=== PATIENT | female | born 1995 | race Caucasian/White ===

== ENCOUNTER 2018-01-19 04:34 | Inpatient (IN) | payer OTHER ==
[~2018-01-19] VITALS: Ht 162.6 cm; Wt 73.1 kg
[2018-01-19 05:25] LABS: BASOPHIL % 0.2 % (0-2); PLATELET COUNT 372 x10^3mcL (130-400); RED CELL DISTRIBUTION WIDTH 15.7 % (11.5-14.5)
[2018-01-19 05:26] LABS: CALCIUM 8.3 mg/dL (8.5-10.1); CARBON DIOXIDE 21.5 mmol/L (21-32); CHLORIDE SERUM 105 mmol/L (98-107); CREATININE SERUM 0.7 mg/dL (0.6-1.0); GFR1 > 60 mL/min; GLUCOSE SERUM 138 mg/dL (74-106); POTASSIUM SERUM 3.4 mmol/L (3.5-5.1); SODIUM SERUM 140 mmol/L (136-145)
[2018-01-19 05:31] LABS: ALKALINE PHOSPHATASE 78 U/L (46-116); ALT/SGPT 24 U/L (14-59); AST/SGOT 20 U/L (15-37); BILIRUBIN TOTAL 0.71 mg/dL (0.20-1.00); TOTAL PROTEIN, SERUM 7.9 g/dL (6.4-8.2)
[2018-01-19 07:42] LABS: microscopic required? YES; urine erythrocyte 2+ (NEGATIVE)
[2018-01-19 09:02] LABS: MAGNESIUM 1.4 mg/dL (1.8-2.4); PHOSPHOROUS 1.9 mg/dL (2.5-4.9)
[2018-01-19 09:03] LABS: AMPHETAMINE QUAL UR NONE DETECTED (See below)
[2018-01-19 10:05] LABS: T3 TOTAL 1.2 ng/mL
[2018-01-19 11:09] LABS: FREE T4 1.22 ng/dL (0.76-1.46); FREE THYROXINE INDEX 2.8 ug/dL (1.4-4.5); T4(THYROXINE) 7.9 ug/dL (4.7-13.3)
[2018-01-19 12:32] VITALS: BP 104/57
[2018-01-19 12:36] VITALS: Ht 162.6 cm; Wt 73.1 kg
[2018-01-19 16:30] VITALS: BP 105/72
[2018-01-19 16:57] LABS: TOTAL IRON BINDING CAPACITY 356 ug/dL (250-450)
[2018-01-19 17:09] LABS: IRON 20 ug/dL (50-170)
[2018-01-19 21:49] VITALS: BP 112/77
[2018-01-20 05:02] VITALS: BP 98/71
[2018-01-20 07:17] LABS: BASOPHIL % 0.1 % (0-2); PLATELET COUNT 240 x10^3mcL (130-400)
[2018-01-20 07:18] LABS: RED CELL DISTRIBUTION WIDTH 17.5 % (11.5-14.5)
[2018-01-20 07:38] LABS: CALCIUM 7.6 mg/dL (8.5-10.1); CARBON DIOXIDE 25.4 mmol/L (21-32); CHLORIDE SERUM 108 mmol/L (98-107); CREATININE SERUM 0.6 mg/dL (0.6-1.0); GFR1 > 60 mL/min; GLUCOSE SERUM 93 mg/dL (74-106); POTASSIUM SERUM 3.9 mmol/L (3.5-5.1); SODIUM SERUM 140 mmol/L (136-145)
[2018-01-20 08:06] VITALS: BP 105/70
[2018-01-20 11:55] LABS: MAGNESIUM 2.3 mg/dL (1.8-2.4); PHOSPHOROUS 3.5 mg/dL (2.5-4.9)
[2018-01-20 12:04] VITALS: BP 108/71
[2018-01-20 16:42] VITALS: BP 113/67
[2018-01-20 21:21] VITALS: BP 103/78
[2018-01-21 05:31] VITALS: BP 100/62
[2018-01-21 06:34] LABS: BASOPHIL % 0.6 % (0-2); PLATELET COUNT 310 x10^3mcL (130-400)
[2018-01-21 06:52] LABS: CALCIUM 8.7 mg/dL (8.5-10.1); CARBON DIOXIDE 25.8 mmol/L (21-32); CHLORIDE SERUM 105 mmol/L (98-107); CREATININE SERUM 0.7 mg/dL (0.6-1.0); GFR1 > 60 mL/min; GLUCOSE SERUM 102 mg/dL (74-106); POTASSIUM SERUM 4.2 mmol/L (3.5-5.1); SODIUM SERUM 137 mmol/L (136-145)
[2018-01-21 07:12] LABS: RED CELL DISTRIBUTION WIDTH 17.6 % (11.5-14.5)
[2018-01-21 09:00] VITALS: BP 97/58
[2018-01-21 17:15] VITALS: BP 122/78
[2018-01-21 21:24] VITALS: BP 108/68
[2018-01-22 05:07] VITALS: BP 95/63
[2018-01-22 06:22] LABS: BASOPHIL % 0.4 % (0-2); PLATELET COUNT 329 x10^3mcL (130-400)
[2018-01-22 06:38] LABS: CALCIUM 8.6 mg/dL (8.5-10.1); CARBON DIOXIDE 24.4 mmol/L (21-32); CHLORIDE SERUM 102 mmol/L (98-107); CREATININE SERUM 0.7 mg/dL (0.6-1.0); GFR1 > 60 mL/min; GLUCOSE SERUM 97 mg/dL (74-106); POTASSIUM SERUM 3.9 mmol/L (3.5-5.1); SODIUM SERUM 136 mmol/L (136-145)
[2018-01-22 06:43] LABS: RED CELL DISTRIBUTION WIDTH 17.4 % (11.5-14.5)
[2018-01-22 08:08] LABS: rbc morphology (normal/abnorm) ABNORMAL (NORMAL)
[2018-01-22 09:54] VITALS: BP 106/66
[2018-01-22] MEDS ORDERED: LAC PO (13:03)
[2018-01-22] MEDS ORDERED: INVANZ1 GM IV (13:03)
[2018-01-22] MEDS ORDERED: FER300 PO (13:03)
== END 2018-01-22 17:02 | disposition home health service (06) | DRG 720 ==
LOC: ED 04:34 → DU 07:54 → MU 07:54 → DU 12:15 → MU 12:15 → DU 12:17 → MU 12:17 → DU 12:43 → MU 01-21 16:04
PROVIDERS: Emergency Medicine; Family Medicine; Internal Medicine
DX: A41.9 Sepsis, unspecified organism (principal); N17.0 Acute kidney failure with tubular necrosis; R65.20 Severe sepsis without septic shock; N20.0 Calculus of kidney; E83.42 Hypomagnesemia; E83.39 Other disorders of phosphorus metabolism; E87.6 Hypokalemia; E83.51 Hypocalcemia; D50.9 Iron deficiency anemia, unspecified; B96.20 Unspecified Escherichia coli [E. coli] as the cause of diseases classified elsewhere; Z90.49 Acquired absence of other specified parts of digestive tract; N12 Tubulo-interstitial nephritis, not specified as acute or chronic
CPT/HCPCS: 84439; J0696; J1885; J2185; J2543; J3475; J7030; Q0092